=== PATIENT | male | born 1960 | race Caucasian/White ===

== ENCOUNTER 2020-09-14 13:46 | Inpatient (IN) ==
[2020-09-14] MEDS ORDERED: ACETAMINOPHEN 1,000 MG/100 ML VIAL IV STA (14:12)
[2020-09-14] MEDS ORDERED: FAMOTIDINE 20MG IV PUSH 20 MG/5 ML SYR IV STA (14:12)
[2020-09-14] MEDS ORDERED: METOCLOPRAMIDE HCL INJ 5 MG/ML 2 ML VIAL IV STA (14:12)
[2020-09-14] MEDS ORDERED: SODIUM CHLORIDE 0.9% 1000ML 1,000 ML IV ONE (14:12)
[2020-09-14 14:48] LABS: Basophils # (auto) 0.01 K/uL (0-0.2); Basophils % (auto) 0.1 %; Eosinophils # (auto) 0.03 K/uL (0-0.5); Eosinophils % (auto) 0.3 %; Hematocrit (blood only) 39.8 % (42-52); Hemoglobin 13.1 g/dL (14.0-18.0); Immature Granulocytes # (auto) 0.05 K/uL (0.00-0.02); Immature Granulocytes % (auto) 0.4 %; Lymphocytes # (auto) 0.93 K/uL (1.2-3.4); Lymphocytes % (auto) 7.8 %; Mean Corpuscular Hemoglobin 30.5 pg (25-34); Mean Corpuscular Hgb Conc 32.9 g/dL (32-36); Mean Corpuscular Volume 92.8 fL (80-100); Mean Platelet Volume 10.1 fL (7.4-10.4); Monocytes # (auto) 1.09 K/uL (0.11-0.59); Monocytes % (auto) 9.1 %; Neutrophils # (auto) 9.82 K/uL (1.4-6.5); Neutrophils % (auto) 82.3 %; Platelet Count 193 K/uL (130-400); RDW Coefficient of Variation 13.7 % (11.5-14.5); RDW Standard Deviation 46.5 fL (36.4-46.3); Red Blood Count 4.29 M/uL (4.7-6.1); White Blood Count 11.93 K/uL (4.8-10.8)
[2020-09-14 15:06] LABS: Appearance Urine Cloudy (Clear); Bacteria Urine Automated 2+ (Negative); Bilirubin Urine Negative (Negative); Blood Urine Negative (Negative); Cast Urine Automated 0 /lpf (0-5); Color Urine Orange; Glucose Urine UA Negative (Negative); Ketones Urine Trace (Negative); Leukocyte Esterase Urine 2+ (Negative); Nitrite Urine Negative (Negative); Protein Urine 1+ (Negative); Specific Gravity Urine 1.022 (1.000-1.030); Urobilinogen Urine Positive (Negative); WBC Urine Automated >30 /hpf (0-5); pH Urine 6.5 (4.5-7.5)
[2020-09-14 15:08] LABS: BUN Creatinine Ratio 13.8 (10-20); Calcium 8.9 mg/dl (8.5-10.1); Creatinine Clr Calc Pharmacy 141.8 ml/min; Est GFR (African American) 91.7; Est GFR (Non-African American) 79.1; Magnesium 2.2 mg/dl (1.8-2.4); Potassium 4.5 mmol/L (3.5-5.1)
[2020-09-14 15:12] LABS: Albumin Globulin Ratio 0.6 (0.9-2); Bilirubin Direct 0.4 mg/dl (0-0.2); Bilirubin,Total 1.2 mg/dl (0.2-1); Globulin 4.6 gm/dl (2.5-4.0); Phosphorus 2.3 mg/dl (2.5-4.9); Total Protein 7.6 gm/dl (6.4-8.2)
[2020-09-14 15:36] LABS: RBC Urine Automated 0-4 /hpf (0-4)
[2020-09-14] MEDS ORDERED: OPTIRAY 320 125ml IV ONE (17:38)
--- NOTE | 2020-09-14 18:00 | CT Scan Report ---
ABDOMEN AND PELVIS CT WITH IV CONTRAST CT DOSE: 2076.87 mGy.cm HISTORY: Acute left-sided flank pain left flank pain TECHNIQUE: Multiaxial CT images of the abdomen and pelvis were performed following the IV administrat ion of 118 cc of Optiray 320, A dose lowering technique was utilized adhering to the principles of A SHANNON. COMPARISON STUDY: Pelvis radiograph 10/04/2007 FINDINGS: Limited exam secondary to patient body habitus with portions of the anatomy outside the fie ld-of-view resulting in beam hardening artifact. Mild cardiomegaly. Coronary artery calcifications. Trace right pleural effusion with mild bibasilar o pacities suggestive of atelectasis. No pneumatosis or pneumoperitoneum. Hepatosplenomegaly with hepat ic steatosis. The spleen measures up to 20 cm in length. Mildly distended gallbladder with layering s ludge versus cholelithiasis. No CT evidence of acute cholecystitis. There is no biliary ductal dilati on. Mild to moderate pancreatic atrophy. Adrenal glands are within normal limits. Probable cyst of the inferior pole right kidney, 6.6 x 5.7 cm. No urolith or obstructive uropathy. Ca lcifications of the central prostate. Mild bladder wall thickening with perivesicular stranding. Smal l diverticulum of the urinary bladder dome, 2.9 cm. Atherosclerosis of the aorta without aneurysm. No adenopathy. No bowel obstruction or bowel wall thickening. Trace presacral free fluid. Trace free fluid of the in ferior left pericolic gutter. Noninflamed appendix. Small fat filled periumbilical hernia, diastases 2.2 cm. There is severe osteoarthritis with prominent subcortical cystic changes of the right femoral acetabular joints. Near-complete bony fusion of the left femoral acetabular joints with cannulated s crew. Asymmetric atrophy of the left hip and thigh. IMPRESSION: 1. No renal or ureteral calculi or obstructive uropathy. 2. Urinary bladder wall thickening with perivesicular stranding. Correlate with urinalysis to exclude cystitis. 3. Hepatosplenomegaly with hepatic steatosis. 4. No bowel obstruction or bowel wall thickening. Normal appendix. 5. Trace right pleural effusion with mild consolidation suggestive of atelectasis. 6. Additional findings as above. ACT 112: Negative or not required by law. The above report was generated using voice recognition software. It may contain grammatical, syntax o r spelling errors. Electronically signed by: Prosper Denis M.D. 09/14/2020 5:58 PM
[2020-09-14] MEDS ORDERED: cefTRIAXone SODIUM 2,000 MG/70 ML BAG IV STA (18:03)
[2020-09-14] MEDS ORDERED: SODIUM CHLORIDE 0.9% 500 ML IV ONE (18:41)
--- NOTE | 2020-09-14 19:53 | Emergency Department Note ---
Impression & Plan Urinary tract infection, Dehydration, Lumbar paraspinal muscle spasm, Hypophosphatemia, Hyponatremia ED Provider Note NAME: SAVANA LAMA AGE: 60 SEX: M ARRIVES VIA: Ambulance INFORMANT: Patient, ED PROVIDER(S): Loco Berger MD CHIEF COMPLAINT: Back pain. Urinary frequency. PLAN: Disposition: Admit MEDICAL DECISION MAKING: The patient is a pleasant 60-year-old gentleman with a past medical history of chronic pain on methadone and as needed oxycodone, nortriptyline, meloxicam, history of morbid obesity, hypertension who presents to the emergency department from home after having worsening lumbar spasms with feverishness and urinary frequency . The patient is poorly ambulatory at baseline where he requires both canes but reports recently he has had to borrow his 's walker but for the most part is sitting in his recliner. He denies any loss of bowel control or urinary retention. On arrival the patient is fatigued, uncomfortable appearing but no acute distress, temperature of 37.6 and vital signs otherwise stable. On exam the patient has mild left lumbar paraspinal muscle discomfort without discrete tenderness. He exhibits generalized weakness throughout without focal deficits. Reflex within normal limits. There is no clonus. Distal PMS intact. WBC 11.9, nonspecific. H/H 13.1/39.8 without prior values for comparison. Platelets within normal limits. Chemistry without metabolic acidosis. Sodium 130 consistent with the patient's clinically dry appearance. Phosphorus 2.3 with repletion provided. Total bili 1.2 with direct bilirubin 1.4, nonspecific. Electrolytes LFTs otherwise unremarkable. UA is consistent with infection with WBCs, 2+ LE, and 2+ bacteria with only 5-10 epithelial cells. COVID-19 RNA, NAAT test was negative. CT done pelvis was performed and demonstrates findings consistent with cystitis. There is no overt evidence of upper infection however given the patient's low-grade fever and back pain we will treat for possible early pyelonephritis. He was given initial dose of ceftriaxone and plan was to treat with course of cefdinir. The patient did appear improved he did still report feeling "achy". However given his evaluation did not show any emergent findings reasonable to proceed with trial of outpatient follow-up. Unfortunately the patient continued to express reservations about his ability to function at home as he reports he was only sitting in his recliner for the past 4 days. His also feels as though he cannot function well at home. We did attempt an ambulatory trial and this was unsuccessful. Thus, reasonable to admit the patient for further treatment of UTI/early as well as PT/OT and likely placement. Case was discussed with Dr. Mullen, [facility] hospitalist, who will evaluate the patient for admission. Triage Nursing notes reviewed and agree them. Prior medical records reviewed Vital Signs: reviewed and remarkable for no significant abnormalities Differential diagnosis: Infection, dehydration, metabolic abnormality, hypo/hyperglycemia, electrolyte disturbance, anemia, hypoxia, cardiac sources, intracerebral event, toxicologic, neurologic, as well as other pathologies. ER treatment provided: See below. Diagnostics interpreted by me: Cardiac Monitoring: An order for continuous cardiac monitoring was placed and demonstrated NSR, 85 bpm, no ectopy. Laboratory studies: See below Imaging studies: ABDOMEN AND PELVIS CT WITH IV CONTRAST CT DOSE: 2076.87 mGy.cm HISTORY: Acute left-sided flank pain left flank pain TECHNIQUE: Multiaxial CT images of the abdomen and pelvis were performed following the IV administration of 118 cc of Optiray 320, A dose lowering technique was utilized adhering to the principles of ALARA. COMPARISON STUDY: Pelvis radiograph 10/04/2007 FINDINGS: Limited exam secondary to patient body habitus with portions of the anatomy outside the [id number] resulting in beam hardening artifact. Mild cardiomegaly. Coronary artery calcifications. Trace right pleural effusion with mild bibasilar opacities suggestive of atelectasis. No pneumatosis or pneumoperitoneum. Hepatosplenomegaly with hepatic steatosis. The spleen measures up to 20 cm in length. Mildly distended gallbladder with layering sludge versus cholelithiasis. No CT evidence of acute cholecystitis. There is no biliary ductal dilation. Mild to moderate pancreatic atrophy. Adrenal glands are within normal limits. Probable cyst of the inferior pole right kidney, 6.6 x 5.7 cm. No urolith or obstructive uropathy. Calcifications of the central prostate. Mild bladder wall thickening with perivesicular stranding. Small diverticulum of the urinary bladder dome, 2.9 cm. Atherosclerosis of the aorta without aneurysm. No adenopathy. No bowel obstruction or bowel wall thickening. Trace presacral free fluid. Trace free fluid of the inferior left pericolic gutter. Noninflamed appendix. Small fat filled periumbilical hernia, diastases 2.2 cm. There is severe osteoarthritis with prominent subcortical cystic changes of the right femoral acetabular joints. Near-complete bony fusion of the left femoral acetabular joints with cannulated screw. Asymmetric atrophy of the left hip and thigh. IMPRESSION: 1. No renal or ureteral calculi or obstructive uropathy. 2. Urinary bladder wall thickening with perivesicular stranding. Correlate with urinalysis to exclude cystitis. 3. Hepatosplenomegaly with hepatic steatosis. 4. No bowel obstruction or bowel wall thickening. Normal appendix. 5. Trace right pleural effusion with mild consolidation suggestive of atelectasis. 6. Additional findings as above. ACT 112: Negative or not required by law. The above report was generated using voice recognition software. It may contain grammatical, syntax or spelling errors. Electronically signed by: Prosper Denis M.D. 09/14/2020 5:58 PM Dictated: 09/14/201750Transcribed: 09/14/201750 Consultation(s): Case was discussed with Dr. Mullen, [facility] hospitalist, who will evaluate the patient for admission. HPI: The patient is a pleasant 60-year-old gentleman with a past medical history of chronic pain on methadone and as needed oxycodone, nortriptyline, meloxicam, history of morbid obesity, hypertension who presents to the emergency department from home after having worsening lumbar spasms with feverishness and urinary frequency . The patient is poorly ambulatory at baseline where he requires both canes but reports recently he has had to borrow his 's walker but for the most part is sitting in his recliner. He denies any loss of bowel control or urinary retention. ROS: See above HPI for pertinent positives & negatives. A total of 10 systems reviewed and were otherwise negative. PAST MEDICAL HISTORY:See Below PAST SURGICAL HISTORY:See Below FAMILY HISTORY:See Below SOCIAL HISTORY:See Below HOME MEDICATIONS:See Below ALLERGIES:See Below VITALS:See Below PHYSICAL EXAMINATION: GENERAL: Awake, alert, uncomfortable-appearing, in no distress, BMI 47.8. HENT: Normocephalic, atraumatic. Oropharynx with dry mucous membranes and otherwise unremarkable. EYES: Normal conjunctiva. Sclera non-icteric. NECK: Supple. No nuchal rigidity. FROM. No JVD. RESPIRATORY: Clear to auscultation. CARDIAC: Regular rate, normal rhythm. Extremities warm and well perfused. Pulses equal. ABDOMEN: Soft, non-distended. No tenderness to palpation. No rebound or guarding. No masses. RECTAL: Deferred. MUSCULOSKELETAL: Chest examination reveals no tenderness. The back is symmetrical on inspection without obvious abnormality. Mild left lumbar paraspinal muscle tenderness. There is no CVA tenderness to palpation. No joint edema. LOWER EXTREMITIES: Calves are equal size bilaterally and non-tender. Chronic lymphedema. No discoloration. NEURO: Normal sensorium. No sensory or motor deficits noted. Generalized weakness with 4+/5 strength and SILT x 4 EXT. DTRs wnl. No clonus. SKIN: No rash or jaundice noted. Loco Berger MD Past Med/Surg History Medical History Anxiety Arthritis Chronic pain Hypertension Social History Smoking Status: Former smoker Preferred Language: British Feels Safe at Home: Yes Allergies Allergies Allergy/AdvReac Type Severity Reaction Status Date / Time adhesive AdvReac Intermediate IRRITATION Unverified 05/02/15 13:05 IN CERTAIN AREA Home Meds Home Medications Medication Instructions Recorded Confirmed atenolol 50 mg PO DAILY 09/14/20 09/14/20 baclofen 10 mg PO TID PRN 09/14/20 09/14/20 gabapentin 800 mg PO TID 09/14/20 09/14/20 lisinopril 10 mg PO DAILY 09/14/20 09/14/20 meloxicam 15 mg PO DAILY 09/14/20 09/14/20 methadone 15 mg PO Q8H PRN 09/14/20 09/14/20 nortriptyline 20 mg PO HS 09/14/20 09/14/20 oxycodone 20 mg PO DAILY PRN 09/14/20 09/14/20 venlafaxine 37.5 mg PO PM 09/14/20 09/14/20 Previous Rx's Medication Instructions Recorded Saccharomyces boulardii [Florastor] 250 mg PO BID #20 cap 09/14/20 cefdinir 300 mg PO BID 10 Days #20 cap 09/14/20 prochlorperazine maleate 10 mg PO QID PRN #14 tab 09/14/20 sod phos di, mono-K phos mono 1 tab PO BID #6 tab 09/14/20 [Phospha] Results & Data (ED) Vital Signs Vital Signs - 24 hr 09/14/20 13:53 09/14/20 13:55 09/14/20 13:56 Temperature 37.6 C H Temperature Source Oral Pulse Rate 95 H 93 H 94 H Pulse Rate from SpO2 Sensor 96 H 93 H Respiratory Rate 15 18 19 Respiratory Effort / Characteristics Non-Labored Spontaneous Respiratory Depth Normal Blood Pressure 124/83 124/83 Blood Pressure Mean 96 96 Blood Pressure Position Sitting Pulse Oximetry 97 97 99 Oxygen Delivery Method Room Air Sepsis Recent Fever Within 48 Hours Yes Sepsis New/Unexplained Change in Mental Status No Sepsis Action Taken by Nursing No Action Required 09/14/20 14:00 09/14/20 14:30 09/14/20 14:41 Temperature Temperature Source Pulse Rate 97 H 91 H Pulse Rate from SpO2 Sensor 100 H 91 H Respiratory Rate 21 19 Respiratory Effort / Characteristics Respiratory Depth Blood Pressure Blood Pressure Mean Blood Pressure Position Pulse Oximetry 93 96 Oxygen Delivery Method Room Air Sepsis Recent Fever Within 48 Hours Sepsis New/Unexplained Change in Mental Status Sepsis Action Taken by Nursing 09/14/20 15:00 09/14/20 15:04 09/14/20 15:30 Temperature Temperature Source Pulse Rate 89 88 84 Pulse Rate from SpO2 Sensor 89 88 86 Respiratory Rate 17 17 15 Respiratory Effort / Characteristics Respiratory Depth Blood Pressure 127/58 L 126/56 L Blood Pressure Mean 81 79 Blood Pressure Position Pulse Oximetry 94 96 92 Oxygen Delivery Method Sepsis Recent Fever Within 48 Hours Sepsis New/Unexplained Change in Mental Status Sepsis Action Taken by Nursing 09/14/20 15:31 09/14/20 16:00 09/14/20 16:01 Temperature Temperature Source Pulse Rate 85 81 79 Pulse Rate from SpO2 Sensor 84 Respiratory Rate 16 16 16 Respiratory Effort / Characteristics Respiratory Depth Blood Pressure 135/67 Blood Pressure Mean 89 Blood Pressure Position Pulse Oximetry 92 Oxygen Delivery Method Sepsis Recent Fever Within 48 Hours Sepsis New/Unexplained Change in Mental Status Sepsis Action Taken by Nursing 09/14/20 16:30 09/14/20 17:00 09/14/20 17:01 Temperature Temperature Source Pulse Rate 84 75 73 Pulse Rate from SpO2 Sensor Respiratory Rate 15 13 13 Respiratory Effort / Characteristics Respiratory Depth Blood Pressure 110/68 125/60 Blood Pressure Mean 82 81 Blood Pressure Position Pulse Oximetry Oxygen Delivery Method Sepsis Recent Fever Within 48 Hours Sepsis New/Unexplained Change in Mental Status Sepsis Action Taken by Nursing 09/14/20 17:30 09/14/20 17:31 09/14/20 18:39 Temperature Temperature Source Pulse Rate 74 73 85 Pulse Rate from SpO2 Sensor 83 Respiratory Rate 18 14 17 Respiratory Effort / Characteristics Respiratory Depth Blood Pressure 111/80 Blood Pressure Mean 90 Blood Pressure Position Pulse Oximetry 98 Oxygen Delivery Method Sepsis Recent Fever Within 48 Hours Sepsis New/Unexplained Change in Mental Status Sepsis Action Taken by Nursing 09/14/20 18:40 09/14/20 19:00 09/14/20 19:30 Temperature Temperature Source Pulse Rate 82 85 82 Pulse Rate from SpO2 Sensor 81 Respiratory Rate 17 22 13 Respiratory Effort / Characteristics Respiratory Depth Blood Pressure 131/59 L 128/99 131/62 Blood Pressure Mean 83 108 85 Blood Pressure Position Pulse Oximetry 97 98 97 Oxygen Delivery Method Room Air Room Air Sepsis Recent Fever Within 48 Hours Sepsis New/Unexplained Change in Mental Status Sepsis Action Taken by Nursing 09/14/20 20:45 09/14/20 21:01 Temperature Temperature Source Pulse Rate 86 86 Pulse Rate from SpO2 Sensor 87 85 Respiratory Rate 14 17 Respiratory Effort / Characteristics Respiratory Depth Blood Pressure 114/66 122/68 Blood Pressure Mean 82 86 Blood Pressure Position Pulse Oximetry 98 96 Oxygen Delivery Method Room Air Room Air Sepsis Recent Fever Within 48 Hours Sepsis New/Unexplained Change in Mental Status Sepsis Action Taken by Nursing Laboratory Data Attestation: I reviewed the patient's lab results. Result diagrams: 09/14/20 14:30 09/14/20 14:30 Lab Results 09/14/20 09/14/20 09/14/20 Range/Units 14:30 14:30 14:55 WBC 11.93 H (4.8-10.8) K/uL RBC 4.29 L (4.7-6.1) M/uL Hgb 13.1 L (14.0-18.0) g/dL Hct 39.8 L (42-52) % MCV 92.8 (80-100) fL MCH 30.5 (25-34) pg MCHC 32.9 (32-36) g/dL RDW Std Deviation 46.5 H (36.4-46.3) fL RDW Coeff of Kobi 13.7 (11.5-14.5) % Plt Count 193 (130-400) K/uL MPV 10.1 (7.4-10.4) fL Immature Gran % (Auto) 0.4 % Neut % (Auto) 82.3 % Lymph % (Auto) 7.8 % [place] % (Auto) 9.1 % Eos % (Auto) 0.3 % Baso % (Auto) 0.1 % Neut # (Auto) 9.82 H (1.4-6.5) K/uL Lymph # (Auto) 0.93 L (1.2-3.4) K/uL [place] # (Auto) 1.09 H (0.11-0.59) K/uL Eos # (Auto) 0.03 (0-0.5) K/uL Baso # (Auto) 0.01 (0-0.2) K/uL Immature Gran # (Auto) 0.05 H (0.00-0.02) K/uL Sodium 130 L (136-145) mmol/L Potassium 4.5 (3.5-5.1) mmol/L Chloride 95 L (98-107) mmol/L Carbon Dioxide 28 (21-32) mmol/L Anion Gap 7.0 (3-11) BUN 14 (7-18) mg/dl Creatinine 1.03 (0.6-1.4) mg/dl Est Cr Clr Drug Dosing 141.8 ml/min Est GFR ( Amer) 91.7 Est GFR (Non-Af Amer) 79.1 BUN/Creatinine Ratio 13.8 (10-20) Glucose 203 H (70-99) mg/dl Calcium 8.9 (8.5-10.1) mg/dl Phosphorus 2.3 L (2.5-4.9) mg/dl Magnesium 2.2 (1.8-2.4) mg/dl Total Bilirubin 1.2 H (0.2-1) mg/dl Direct Bilirubin 0.4 H (0-0.2) mg/dl AST 29 (15-37) U/L ALT 31 (12-78) U/L Alkaline Phosphatase 104 (45-117) U/L Total Protein 7.6 (6.4-8.2) gm/dl Albumin 3.0 L (3.4-5.0) gm/dl Globulin 4.6 H (2.5-4.0) gm/dl Albumin/Globulin Ratio 0.6 L (0.9-2) Lipase 98 (73-393) U/L Urine Color [place] Urine Appearance Cloudy A (Clear) Urine pH 6.5 (4.5-7.5) Ur Specific [place] 1.022 (1.000-1.030) Urine Protein 1+ H (Negative) Urine Glucose (UA) Negative (Negative) Urine Ketones Trace H (Negative) Urine Blood Negative (Negative) Urine Nitrite Negative (Negative) Urine Bilirubin Negative (Negative) Urine Urobilinogen Positive H (Negative) Ur Leukocyte Esterase 2+ H (Negative) Urine WBC (Auto) >30 H (0-5) /hpf Urine RBC (Auto) 0-4 (0-4) /hpf U Hyaline Cast (Auto) 0 (0-5) /lpf U Epithel Cells (Auto) 5-10 H (0-5) /lpf Urine Bacteria (Auto) 2+ H (Negative) COVID-19 Eval Order SARS-CoV-2, RNA, NAAT (NEGATIVE) 09/14/20 09/14/20 Range/Units 15:00 15:00 WBC (4.8-10.8) K/uL RBC (4.7-6.1) M/uL Hgb (14.0-18.0) g/dL Hct (42-52) % MCV (80-100) fL MCH (25-34) pg MCHC (32-36) g/dL RDW Std Deviation (36.4-46.3) fL RDW Coeff of Kobi (11.5-14.5) % Plt Count (130-400) K/uL MPV (7.4-10.4) fL Immature Gran % (Auto) % Neut % (Auto) % Lymph % (Auto) % [place] % (Auto) % Eos % (Auto) % Baso % (Auto) % Neut # (Auto) (1.4-6.5) K/uL Lymph # (Auto) (1.2-3.4) K/uL [place] # (Auto) (0.11-0.59) K/uL Eos # (Auto) (0-0.5) K/uL Baso # (Auto) (0-0.2) K/uL Immature Gran # (Auto) (0.00-0.02) K/uL Sodium (136-145) mmol/L Potassium (3.5-5.1) mmol/L Chloride (98-107) mmol/L Carbon Dioxide (21-32) mmol/L Anion Gap (3-11) BUN (7-18) mg/dl Creatinine (0.6-1.4) mg/dl Est Cr Clr Drug Dosing ml/min Est GFR ( Amer) Est GFR (Non-Af Amer) BUN/Creatinine Ratio (10-20) Glucose (70-99) mg/dl Calcium (8.5-10.1) mg/dl Phosphorus (2.5-4.9) mg/dl Magnesium (1.8-2.4) mg/dl Total Bilirubin (0.2-1) mg/dl Direct Bilirubin (0-0.2) mg/dl AST (15-37) U/L ALT (12-78) U/L Alkaline Phosphatase (45-117) U/L Total Protein (6.4-8.2) gm/dl Albumin (3.4-5.0) gm/dl Globulin (2.5-4.0) gm/dl Albumin/Globulin Ratio (0.9-2) Lipase (73-393) U/L Urine Color Urine Appearance (Clear) Urine pH (4.5-7.5) Ur Specific [place] (1.000-1.030) Urine Protein (Negative) Urine Glucose (UA) (Negative) Urine Ketones (Negative) Urine Blood (Negative) Urine Nitrite (Negative) Urine Bilirubin (Negative) Urine Urobilinogen (Negative) Ur Leukocyte Esterase (Negative) Urine WBC (Auto) (0-5) /hpf Urine RBC (Auto) (0-4) /hpf U Hyaline Cast (Auto) (0-5) /lpf U Epithel Cells (Auto) (0-5) /lpf Urine Bacteria (Auto) (Negative) COVID-19 Eval Order Covid19 IDNow atMTXC SARS-CoV-2, RNA, NAAT NEGATIVE (NEGATIVE) Administered Medications Sodium Chloride (Nss 1000ml) 1,000 mls @ 125 mls/hr IV .Q8H NORM Stop: 10/14/20 19:59 Last Admin: 09/14/20 20:42 Dose: 125 mls/hr Documented by: [id number] Discontinued Medications Hydromorphone HCl (Hydromorphone Inj 0.5 Mg/0.5 Ml Syr) 0.5 mg IV NOW STA Stop: 09/14/20 21:13 Last Admin: 09/14/20 21:47 Dose: 0.5 mg Documented by: [id number] Sodium Chloride (Nss 1000ml) 1,000 mls @ 999 mls/hr IV .Q1H1M ONE Stop: 09/14/20 15:12 Last Infusion: 09/14/20 16:00 Dose: 0 mls/hr Documented by: [id number] Admin: 09/14/20 14:59 Dose: 999 mls/hr Documented by: [id number] Acetaminophen (Ofirmev) 1,000 mg in 100 mls @ 400 mls/hr IV NOW STA Stop: 09/14/20 14:26 Last Infusion: 09/14/20 15:15 Dose: 0 mls/hr Documented by: [id number] Admin: 09/14/20 14:59 Dose: 400 mls/hr Documented by: [id number] Famotidine (Pepcid 20mg Iv Push) 20 mg in 5 mls @ 2.5 mls/min IV NOW STA Stop: 09/14/20 14:13 Last Admin: 09/14/20 14:59 Dose: 2.5 mls/min Documented by: [id number] Ceftriaxone Sodium (Rocephin) 2,000 mg in 70 mls @ 140 mls/hr IV NOW STA Stop: 09/14/20 18:32 Last Infusion: 09/14/20 19:12 Dose: 0 mls/hr Documented by: [id number] Admin: 09/14/20 18:37 Dose: 140 mls/hr Documented by: [id number] Sodium Chloride (Nss) 500 mls @ 999 mls/hr IV .Q31M ONE Stop: 09/14/20 19:11 Last Infusion: 09/14/20 19:16 Dose: 0 mls/hr Documented by: [id number] Admin: 09/14/20 18:42 Dose: 999 mls/hr Documented by: [id number] Ioversol (Optiray 320 125ml) 118 ml IV ONCE ONE Stop: 09/14/20 17:39 Last Admin: 09/14/20 17:38 Dose: 118 ml Documented by: [id number] Metoclopramide HCl (Metoclopramide Hcl Inj 5 Mg/Ml 2 Ml Vial) 10 mg IV NOW STA Stop: 09/14/20 14:13 Last Admin: 09/14/20 14:59 Dose: 10 mg Documented by: [id number] Discharge Plan Visit Data Chief Complaint: Back Injury/Pain Stated Complaint: Back Pain, Urinary Symptoms ED Provider: Loco Berger Discharge Problem: Urinary tract infection, Dehydration, Lumbar paraspinal muscle spasm, Hypophosphatemia, Hyponatremia Patient Disposition: Admitted As Inpatient Condition: Good Discharge Instructions Interventions: ED Discharge Assessment Last Done: 09/14/20 21:44 Discharge Problem: Urinary tract infection Qualifiers: Urinary tract infection type: acute cystitis Hematuria presence: with hematuria Qualified Code(s): N30.01 - Acute cystitis with hematuria
[2020-09-14] MEDS ORDERED: SODIUM CHLORIDE 0.9% 1000ML 1,000 ML IV SCH (20:00)
[2020-09-14] MEDS ORDERED: HYDROmorphone INJ 0.5 MG/0.5 ML SYR IV STA (21:12)
[2020-09-14] MEDS ORDERED: BACLOFEN 10 MG TAB PO PRN (22:10)
[2020-09-14] MEDS ORDERED: HYDROmorphone INJ 0.5 MG/0.5 ML SYR IV PRN (22:10)
[2020-09-14] MEDS ORDERED: ONDANSETRON INJ 2 MG/ML 2 ML VIAL IV PRN (22:10)
[2020-09-14] MEDS ORDERED: METHADONE HCL 5 MG TAB PO PRN (22:10)
[2020-09-14] MEDS: oxyCODONE HCL IR 5 MG TAB (IMMEDIATE RELEASE) PO PRN (23:31)
[2020-09-14] MEDS: METHADONE HCL 5 MG TAB PO SCH (23:31)
[2020-09-14] MEDS: GABAPENTIN 800 MG TAB PO SCH (23:32)
[2020-09-14] MEDS: NORTRIPTYLINE HCL 10 MG CAP PO SCH (23:32)
[2020-09-14] MEDS: VENLAFAXINE HCL XR 37.5 MG CAPXR PO SCH (23:33)
--- NOTE | 2020-09-15 01:32 | History and Physical Report ---
DATE OF ADMISSION: 09/14/2020 CHIEF COMPLAINT: Back pain, ambulatory dysfunction. HISTORY OF PRESENT ILLNESS: A 60-year-old male with past medical history significant for hypertension, morbid obesity, generalized osteoarthrosis, chronic pain syndrome, who presents with back pain and ambulatory dysfunction. The patient states since last 3 days he is having severe back pain and spasms. He usually walks with two canes, but he is using 's walker, which prompted him to come to the ER. He also had some burning micturition and some abdominal discomfort. In the ER, he had a mild temperature spike and mild leukocytosis and UA was positive. Initially ER tried to discharge him, but he was having poor ambulatory dysfunction and so we are called for observation in the hospital and PT and OT. Currently complains of back pain. He had headache about a week ago, but that got resolved. He has chronic erythema on his face. No blurred visions, no earache, no runny nose, no sore throat, no loss of sense of smell or taste. No cough, no difficulty swallowing. Appetite is not that great since last few days. No chest pain, no shortness of breath. Has nausea. Has some abdominal discomfort. He is constipated. Denies any blood in the stool or black stools. Denies any hematuria. No rash anywhere else. ALLERGIES: ADHESIVES. PAST MEDICAL HISTORY: As mentioned above. PAST SURGICAL HISTORY: Left wrist reconstruction surgery, hemorrhoid removal, reconstruction of the hip, tonsillectomy, adenoidectomy, sigmoidoscopy. MEDICATIONS: The patient is on atenolol 50 mg p.o. daily, baclofen 10 mg p.o. t.i.d. p.r.n., gabapentin 800 mg p.o. t.i.d., lisinopril 10 mg p.o. daily, meloxicam 15 mg p.o. daily, methadone 15 mg p.o. 8 hours p.r.n., nortriptyline 20 mg p.o. at bedtime, oxycodone 20 mg p.o. daily p.r.n., prochlorperazine 10 mg p.o. q.i.d. p.r.n., Florastor 250 mg p.o. b.i.d., Phospha one tablet p.o. b.i.d., venlafaxine 37.5 mg p.o. p.m. FAMILY HISTORY: Significant for maternal grandfather had cancer; maternal grandmother had diabetes. SOCIAL HISTORY: , smokes 1 pack a day. Alcohol, social drinking. No drug use. REVIEW OF SYSTEMS: As per HPI. Rest of the review of systems negative. PHYSICAL EXAMINATION: GENERAL: The patient is morbidly obese, not in acute distress. VITAL SIGNS: Temperature 37.6, pulse 86, respiratory rate 14, blood pressure 114/66, oxygen 98% on room air. HEENT: Pupils equal, round, and reactive. Erythema on the face on both the cheeks and forehead. Oral mucosa moist. NECK: No neck masses seen. CARDIOVASCULAR: S1, S2 heard. Regular rate and rhythm, no murmur, no gallop. RESPIRATORY SYSTEM: Normal AP diameter. No accessory muscle use. No wheezing, no crackles. ABDOMEN: Soft, bowel sounds present, nontender. No distention. CENTRAL NERVOUS SYSTEM: Alert and oriented. Speech is clear. No facial droop. Obeys simple commands. Moves extremities. EXTREMITIES: No edema, no erythema. MUSCULOSKELETAL: Right straight leg test positive. LABORATORY DATA: WBC 11.9, hemoglobin 13.1, hematocrit 39.8, platelets 193. Sodium 130, potassium 4.5, chloride 95, bicarbonate 28, BUN 14, creatinine 1, serum glucose 203, calcium 8.9, phosphorus 2.3, magnesium 2.2, total bilirubin 1.2, direct bilirubin 0.4, AST 29, ALT 31, alkaline phosphatase 104, lipase 98. Urinalysis positive for leukocyte esterase and +2 bacteria. SARS-CoV-2 negative. IMAGING DATA: CT of the abdomen and pelvis, urinary bladder wall thickening with perivesical stranding, correlate with urinalysis to exclude cystitis. Hepatosplenomegaly with hepatic steatosis. No renal or ureteral calculi or obstructive uropathy. No bowel obstruction or bowel wall thickening, normal appendix. Trace right pleural effusion with mild consolidation suggestive of atelectasis. ASSESSMENT AND PLAN: This is a 60-year-old male who presents with dqxby-[id number] back pain and ambulatory dysfunction and urinary tract infection. 1. Nfcoy-tl-lzntixu back pain and ambulatory dysfunction, chronic pain syndrome, continue home pain medications, IV Dilaudid p.r.n. PT/OT. May be pain exacerbated from his urinary tract infection. 2. Urinary tract infection: Will continue Rocephin. Follow the cultures. 3. Hyperglycemia: We will follow HbA1c levels. Follow the labs. 4. Hypertension: Continue his lisinopril. Will monitor his blood pressure. 5. Depression: Continue venlafaxine. 6. Morbid obesity: Needs counseling. 7. Deep venous thrombosis prophylaxis: Lovenox. DISPOSITION: Observation in medical floor. PT and OT. Social service to help with discharge planning. Level 1 full code. MTDD
[2020-09-15] MEDS: METHADONE HCL 5 MG TAB PO SCH ×3 (06:28→21:13)
[2020-09-15 06:56] LABS: Basophils # (auto) 0.03 K/uL (0-0.2); Basophils % (auto) 0.3 %; Eosinophils # (auto) 0.17 K/uL (0-0.5); Eosinophils % (auto) 1.5 %; Hematocrit (blood only) 37.7 % (42-52); Hemoglobin 12.3 g/dL (14.0-18.0); Immature Granulocytes # (auto) 0.03 K/uL (0.00-0.02); Immature Granulocytes % (auto) 0.3 %; Lymphocytes # (auto) 1.46 K/uL (1.2-3.4); Lymphocytes % (auto) 13.2 %; Mean Corpuscular Hemoglobin 30.7 pg (25-34); Mean Corpuscular Hgb Conc 32.6 g/dL (32-36); Mean Platelet Volume 10.1 fL (7.4-10.4); Monocytes # (auto) 1.06 K/uL (0.11-0.59); Monocytes % (auto) 9.6 %; Neutrophils # (auto) 8.31 K/uL (1.4-6.5); Neutrophils % (auto) 75.1 %; Platelet Count 200 K/uL (130-400); RDW Coefficient of Variation 13.8 % (11.5-14.5); RDW Standard Deviation 47.7 fL (36.4-46.3); Red Blood Count 4.01 M/uL (4.7-6.1); White Blood Count 11.06 K/uL (4.8-10.8)
[2020-09-15] MEDS ORDERED: MICONAZOLE NITRATE POWDER 43 GM EXT PRN (07:02)
[2020-09-15 07:03] LABS: INR 1.2 (0.9-1.1)
[2020-09-15 07:23] LABS: BUN Creatinine Ratio 16.1 (10-20); Calcium 8.2 mg/dl (8.5-10.1); Creatinine Clr Calc Pharmacy 157.7 ml/min; Est GFR (African American) 106.5; Est GFR (Non-African American) 91.9; Magnesium 2.3 mg/dl (1.8-2.4); Potassium 4.3 mmol/L (3.5-5.1)
[2020-09-15 07:58] LABS: Estimated Average Glucose 169 mg/dl; Hemoglobin A1C 7.5 % (4.5-5.6)
[2020-09-15] MEDS: ENOXAPARIN INJ 40 MG/0.4 ML SYR SQ SCH ×2 (08:24→21:14)
[2020-09-15] MEDS: ATENOLOL 50 MG TABLET PO SCH (08:25)
[2020-09-15] MEDS: lisinopril 10 MG TAB PO SCH (08:25)
[2020-09-15] MEDS: MELOXICAM 7.5 MG TAB PO SCH (08:25)
[2020-09-15] MEDS: GABAPENTIN 800 MG TAB PO SCH ×3 (08:25→21:13)
[2020-09-15] MEDS: BACLOFEN 10 MG TAB PO SCH ×2 (14:05→21:12)
--- NOTE | 2020-09-15 14:44 | Communication Note ---
Date of Service: September 15, 2020 The patient was seen and examined in medical floor He is obese and admitted with back pain with ambulatory dysfunction and noted to have UTI Has had some sweating earlier this morning but denies any other symptoms except ongoing pain On examination Lying in bed comfortably Hemodynamically stable His admission labs and imaging studies reviewed He has been getting ceftriaxone for UTI His usual medications will be continued PT and OT evaluation Will have full progress note tomorrow DR Rossi Michaels
[2020-09-15] MEDS: cefTRIAXone SODIUM 2,000 MG in DEXTROSE 5% 50 ML IV SCH (17:37)
[2020-09-15] MEDS: VENLAFAXINE HCL XR 37.5 MG CAPXR PO SCH (21:12)
[2020-09-15] MEDS: NORTRIPTYLINE HCL 10 MG CAP PO SCH (21:13)
[2020-09-15] MEDS: INSULIN ASPART 100 UNITS/ML 3 ML PEN SC SCH (21:14)
[2020-09-16] MEDS: METHADONE HCL 5 MG TAB PO SCH ×3 (05:19→21:30)
[2020-09-16] MEDS: ATENOLOL 50 MG TABLET PO SCH (08:19)
[2020-09-16] MEDS: MELOXICAM 7.5 MG TAB PO SCH (08:19)
[2020-09-16] MEDS: BACLOFEN 10 MG TAB PO SCH ×3 (08:20→21:32)
[2020-09-16] MEDS: lisinopril 10 MG TAB PO SCH (08:20)
[2020-09-16] MEDS: ENOXAPARIN INJ 40 MG/0.4 ML SYR SQ SCH ×2 (08:20→21:32)
[2020-09-16] MEDS: GABAPENTIN 800 MG TAB PO SCH ×3 (08:20→21:31)
[2020-09-16] MEDS: INSULIN ASPART 100 UNITS/ML 3 ML PEN SC SCH ×4 (08:21→20:59)
--- NOTE | 2020-09-16 09:58 | Hospitalist Progress Note ---
Date of Service September 16, 2020 This is a late entry for 09/15/2020 Assessment & Plan (1) Acute exacerbation of chronic low back pain: Has chronic back pain on narcotics as an outpatient Has been complaining of increasing pain recently with ambulatory dysfunction We will continue outpatient pain medications May need occasional intravenous pain medicine We will get PT and OT evaluation (2) Lumbar paraspinal muscle spasm: We will continue with regular doses of baclofen (3) Urinary tract infection: Been having urinary symptoms Has been on ceftriaxone (4) Hypertension: Patient is controlled (5) Morbid obesity: (6) Depression: No acute delirium Continue current meds DVT prophylaxis Subcu Lovenox Admission and Anticipated Discharge Date Admission Date: September 14, 2020 Subjective Late entry for 09/15/2020 The patient was seen and examined in medical floor His back pain seems to be stable and complains to have occasional spasm He has had some sweating after admission or during my examination symptoms were better Review of Systems Review of Systems: All systems reviewed and are unremarkable except as noted below Musculoskeletal: + back pain Physical Exam Physical Exam: Lying in bed comfortably Constitutional: well developed, well nourished and + obese; not ill appearing Eyes: PERRL, conjunctivae normal, anicteric sclerae ENMT: external ear and nose normal, oropharynx normal Neck: trachea midline, no thyromegaly Respiratory: no respiratory distress Auscultation: lungs clear to auscultation bilaterally Cardiovascular: Rate/Rhythm: regular rate and regular rhythm Heart Sounds: no murmur Extremities: + edema (Trace to 1+ edema bilaterally) Gastrointestinal (Abdomen): Inspection/Auscultation: normal bowel sounds; abdomen not distended Percussion/Palpation: abdomen soft; abdomen nontender Musculoskeletal: No acute arthritis in any joint Neurologic: Alert, awake and oriented x3. No focal sensory and motor deficit appreciated Psychiatric: A+Ox3, euthymic affect Lymphatic: no cervical or axillary lymphadenopathy Results & Data Results & Data ([facility]) Vital Signs (Past 12 Hours) Vital Signs Temp Pulse Resp BP Pulse Ox 09/16/20 07:27 37.2 C 71 18 119/70 92 09/15/20 23:19 36.9 C 74 18 114/67 93 Medications Administered Current Inpatient Medications Acetaminophen (Acetaminophen 325 Mg Tab) 650 mg PO Q4H PRN PRN Reason: pain/fever Stop: 10/14/20 22:09 Atenolol (Atenolol 50 Mg Tablet) 50 mg PO DAILY [facility] Stop: 10/15/20 08:59 Last Admin: 09/16/20 08:19 Dose: 50 mg Documented by: Baclofen (Baclofen 10 Mg Tab) 10 mg PO TID [facility] Stop: 10/15/20 13:59 Last Admin: 09/16/20 08:20 Dose: 10 mg Documented by: Enoxaparin Sodium (Enoxaparin Inj 40 Mg/0.4 Ml Syr) 40 mg SQ Q12H [facility] Stop: 10/15/20 08:59 Last Admin: 09/16/20 08:20 Dose: 40 mg Documented by: Gabapentin (Gabapentin 800 Mg Tab) 800 mg PO TID [facility] Stop: 10/15/20 08:59 Last Admin: 09/16/20 08:20 Dose: 800 mg Documented by: Hydromorphone HCl (Hydromorphone Inj 0.5 Mg/0.5 Ml Syr) 0.5 mg IV Q4H PRN PRN Reason: Pain Stop: 09/28/20 22:09 Ceftriaxone Sodium 2,000 mg/ (Dextrose) 70 mls @ 100 mls/hr IV Q24H [facility]; Protocol Stop: 09/23/20 18:41 Last Infusion: 09/15/20 18:30 Dose: Infused Documented by: Insulin Aspart (Insulin Aspart 100 Units/Ml 3 Ml Pen) 0 units SC ACHS [facility] Stop: 10/15/20 20:59 Last Admin: 09/16/20 08:21 Dose: 4 units Documented by: Lisinopril (Lisinopril 10 Mg Tab) 10 mg PO DAILY [facility] Stop: 10/15/20 08:59 Last Admin: 09/16/20 08:20 Dose: 10 mg Documented by: Meloxicam (Meloxicam 7.5 Mg Tab) 15 mg PO DAILY [facility] Stop: 10/15/20 08:59 Last Admin: 09/16/20 08:19 Dose: 15 mg Documented by: Methadone HCl (Methadone Hcl 5 Mg Tab) 15 mg PO Q8 [facility] Stop: 09/29/20 21:59 Last Admin: 09/16/20 05:19 Dose: 15 mg Documented by: Miconazole Nitrate (Miconazole Nitrate Powder 43 Gm) 1 appln EXT PRN PRN PRN Reason: Rash Stop: 10/15/20 07:01 Nortriptyline HCl (Nortriptyline Hcl 10 Mg Cap) 20 mg PO HS [facility] Stop: 10/15/20 20:59 Last Admin: 09/15/20 21:13 Dose: 20 mg Documented by: Oxycodone HCl (Oxycodone Hcl Ir 5 Mg Tab (Immediate Release)) 20 mg PO DAILY PRN PRN Reason: Pain Stop: 09/28/20 22:09 Last Admin: 09/14/20 23:31 Dose: 20 mg Documented by: Polyethylene Glycol (Polyethylene (Miralax) 17 Gm Pack) 17 gm PO DAILY PRN PRN Reason: Constipation Stop: 10/14/20 22:09 Venlafaxine HCl (Venlafaxine Hcl Xr 37.5 Mg Capxr) 37.5 mg PO PM [facility] Stop: 10/15/20 20:59 Last Admin: 09/15/20 21:12 Dose: 37.5 mg Documented by: (1) Urinary tract infection Hematuria presence: with hematuria Urinary tract infection type: acute cystitis Qualified Code(s): N30.01 - Acute cystitis with hematuria
--- NOTE | 2020-09-16 11:42 | Hospitalist Progress Note ---
Date of Service September 16, 2020 Assessment & Plan (1) Acute exacerbation of chronic low back pain: Has chronic back pain on narcotics as an outpatient Has been complaining of increasing pain recently with ambulatory dysfunction We will continue outpatient pain medications May need occasional intravenous pain medicine We will get PT and OT evaluation We will get lidocaine patch locally (2) Lumbar paraspinal muscle spasm: We will continue with regular doses of baclofen Pain is worse with movement (3) Urinary tract infection: Been having urinary symptoms Has been on ceftriaxone Awaiting urine culture report (4) Hypertension: Patient is controlled (5) Morbid obesity: (6) Depression: No acute delirium Continue current meds DVT prophylaxis Subcu Lovenox Awaiting PT and OT evaluation May need placement Admission and Anticipated Discharge Date Admission Date: September 14, 2020 Subjective Late entry for 09/15/2020 The patient was seen and examined in medical floor His back pain seems to be stable and complains to have occasional spasm He has had some sweating after admission or during my examination symptoms were better 09/16/2020 The patient was seen and examined in medical floor He has had another episode of sweating this morning His pain seems to be reasonably controlled Does not have any radiation of pain Review of Systems Review of Systems: All systems reviewed and are unremarkable except as noted below Musculoskeletal: + back pain Physical Exam Physical Exam: Lying in bed comfortably Constitutional: well developed, well nourished and + obese; not ill appearing Eyes: PERRL, conjunctivae normal, anicteric sclerae ENMT: external ear and nose normal, oropharynx normal Neck: trachea midline, no thyromegaly Respiratory: no respiratory distress Auscultation: lungs clear to auscultation bilaterally Cardiovascular: Rate/Rhythm: regular rate and regular rhythm Heart Sounds: no murmur Extremities: + edema (Trace to 1+ edema bilaterally) Gastrointestinal (Abdomen): Inspection/Auscultation: normal bowel sounds; abdomen not distended Percussion/Palpation: abdomen soft; abdomen nontender Musculoskeletal: Has back pain without radiation and does not have any acute arthritis Neurologic: Alert, awake and oriented x3 Psychiatric: A+Ox3, euthymic affect Lymphatic: no cervical or axillary lymphadenopathy Results & Data Results & Data ([facility]) Vital Signs (Past 12 Hours) Vital Signs Temp Pulse Resp BP Pulse Ox 09/16/20 07:27 37.2 C 71 18 119/70 92 Medications Administered Current Inpatient Medications Acetaminophen (Acetaminophen 325 Mg Tab) 650 mg PO Q4H PRN PRN Reason: pain/fever Stop: 10/14/20 22:09 Atenolol (Atenolol 50 Mg Tablet) 50 mg PO DAILY [facility] Stop: 10/15/20 08:59 Last Admin: 09/16/20 08:19 Dose: 50 mg Documented by: Baclofen (Baclofen 10 Mg Tab) 10 mg PO TID [facility] Stop: 10/15/20 13:59 Last Admin: 09/16/20 08:20 Dose: 10 mg Documented by: Enoxaparin Sodium (Enoxaparin Inj 40 Mg/0.4 Ml Syr) 40 mg SQ Q12H [facility] Stop: 10/15/20 08:59 Last Admin: 09/16/20 08:20 Dose: 40 mg Documented by: Gabapentin (Gabapentin 800 Mg Tab) 800 mg PO TID [facility] Stop: 10/15/20 08:59 Last Admin: 09/16/20 08:20 Dose: 800 mg Documented by: Hydromorphone HCl (Hydromorphone Inj 0.5 Mg/0.5 Ml Syr) 0.5 mg IV Q4H PRN PRN Reason: Pain Stop: 09/28/20 22:09 Ceftriaxone Sodium 2,000 mg/ (Dextrose) 70 mls @ 100 mls/hr IV Q24H [facility]; Protocol Stop: 09/23/20 18:41 Last Infusion: 09/15/20 18:30 Dose: Infused Documented by: Insulin Aspart (Insulin Aspart 100 Units/Ml 3 Ml Pen) 0 units SC ACHS [facility] Stop: 10/15/20 20:59 Last Admin: 09/16/20 08:21 Dose: 4 units Documented by: Lidocaine (Lidocaine 5% 1 Patch) 1 patch TD QAM [facility] Stop: 10/16/20 11:44 Lisinopril (Lisinopril 10 Mg Tab) 10 mg PO DAILY [facility] Stop: 10/15/20 08:59 Last Admin: 09/16/20 08:20 Dose: 10 mg Documented by: Meloxicam (Meloxicam 7.5 Mg Tab) 15 mg PO DAILY [facility] Stop: 10/15/20 08:59 Last Admin: 09/16/20 08:19 Dose: 15 mg Documented by: Methadone HCl (Methadone Hcl 5 Mg Tab) 15 mg PO Q8 [facility] Stop: 09/29/20 21:59 Last Admin: 09/16/20 05:19 Dose: 15 mg Documented by: Miconazole Nitrate (Miconazole Nitrate Powder 43 Gm) 1 appln EXT PRN PRN PRN Reason: Rash Stop: 10/15/20 07:01 Miscellaneous (Remove Lidoderm Patch) 1 ea N/A DAILY@2100 [facility] Stop: 10/16/20 20:59 Nortriptyline HCl (Nortriptyline Hcl 10 Mg Cap) 20 mg PO HS [facility] Stop: 10/15/20 20:59 Last Admin: 09/15/20 21:13 Dose: 20 mg Documented by: Oxycodone HCl (Oxycodone Hcl Ir 5 Mg Tab (Immediate Release)) 20 mg PO DAILY PRN PRN Reason: Pain Stop: 09/28/20 22:09 Last Admin: 09/14/20 23:31 Dose: 20 mg Documented by: Polyethylene Glycol (Polyethylene (Miralax) 17 Gm Pack) 17 gm PO DAILY PRN PRN Reason: Constipation Stop: 10/14/20 22:09 Venlafaxine HCl (Venlafaxine Hcl Xr 37.5 Mg Capxr) 37.5 mg PO PM [facility] Stop: 10/15/20 20:59 Last Admin: 09/15/20 21:12 Dose: 37.5 mg Documented by: (1) Urinary tract infection Hematuria presence: with hematuria Urinary tract infection type: acute cystitis Qualified Code(s): N30.01 - Acute cystitis with hematuria
[2020-09-16] MEDS: LIDOCAINE 5% 1 PATCH TD SCH (12:13)
[2020-09-16] MEDS: oxyCODONE HCL IR 5 MG TAB (IMMEDIATE RELEASE) PO PRN (16:14)
[2020-09-16] MEDS: cefTRIAXone SODIUM 2,000 MG in DEXTROSE 5% 50 ML IV SCH (17:38)
[2020-09-16] MEDS: NORTRIPTYLINE HCL 10 MG CAP PO SCH (21:31)
[2020-09-16] MEDS: VENLAFAXINE HCL XR 37.5 MG CAPXR PO SCH (21:32)
[2020-09-17] MEDS: METHADONE HCL 5 MG TAB PO SCH ×3 (05:26→22:30)
[2020-09-17] MEDS: POLYETHYLENE (MIRALAX) 17 GM PACK PO PRN (09:04)
[2020-09-17] MEDS: BACLOFEN 10 MG TAB PO SCH ×3 (09:06→20:33)
[2020-09-17] MEDS: lisinopril 10 MG TAB PO SCH (09:06)
[2020-09-17] MEDS: ATENOLOL 50 MG TABLET PO SCH (09:06)
[2020-09-17] MEDS: LIDOCAINE 5% 1 PATCH TD SCH (09:06)
[2020-09-17] MEDS: GABAPENTIN 800 MG TAB PO SCH ×3 (09:07→20:33)
[2020-09-17] MEDS: ENOXAPARIN INJ 40 MG/0.4 ML SYR SQ SCH ×2 (09:07→20:34)
[2020-09-17] MEDS: MELOXICAM 7.5 MG TAB PO SCH (09:07)
[2020-09-17] MEDS: INSULIN ASPART 100 UNITS/ML 3 ML PEN SC SCH ×4 (09:08→22:14)
--- NOTE | 2020-09-17 14:03 | Hospitalist Progress Note ---
Date of Service September 17, 2020 Assessment & Plan (1) Acute exacerbation of chronic low back pain: Has chronic back pain on narcotics as an outpatient Has been complaining of increasing pain recently with ambulatory dysfunction We will continue outpatient pain medications May need occasional intravenous pain medicine We will get PT and OT evaluation We will get lidocaine patch locally Still ongoing back pain without any radiculopathy and/or bladder or bowel problem PT recommended rehab and the patient is awaiting insurance approval to go to [facility] or [facility] Will need Ortho evaluation prior to discharge We will get initial x-ray of the spine Ortho consulted (2) Lumbar paraspinal muscle spasm: We will continue with regular doses of baclofen Pain is worse with movement (3) Urinary tract infection: Been having urinary symptoms Has been on ceftriaxone Awaiting urine culture report Urine culture showed alpha streptococci not Enterococcus We will continue antibiotic for 5 days in total since he has been having some sweating intermittently (4) Hypertension: Patient is controlled (5) Morbid obesity: (6) Depression: No acute delirium Continue current meds DVT prophylaxis Subcu Lovenox Awaiting PT and OT evaluation May need placement Admission and Anticipated Discharge Date Admission Date: September 16, 2020 Subjective Late entry for 09/15/2020 The patient was seen and examined in medical floor His back pain seems to be stable and complains to have occasional spasm He has had some sweating after admission or during my examination symptoms were better 09/16/2020 The patient was seen and examined in medical floor He has had another episode of sweating this morning His pain seems to be reasonably controlled Does not have any radiation of pain 09/17/2020 The patient was seen and examined in medical floor He complains to have ongoing back pain without any radiation and without any bladder and/or bowel problem He has been on chronic pain medications for chronic pain syndrome PT recommended that he should go to rehab but he will need to have Ortho evaluation before going to rehab Review of Systems Review of Systems: All systems reviewed and are unremarkable except as noted below Musculoskeletal: + back pain Physical Exam Physical Exam: Lying in bed comfortably Constitutional: well developed, well nourished and + obese; not ill appearing Eyes: PERRL, conjunctivae normal, anicteric sclerae ENMT: external ear and nose normal, oropharynx normal Neck: trachea midline, no thyromegaly Respiratory: no respiratory distress Auscultation: lungs clear to auscultation bilaterally Cardiovascular: Rate/Rhythm: regular rate and regular rhythm Heart Sounds: no murmur Extremities: + edema (Trace to 1+ edema bilaterally) Gastrointestinal (Abdomen): Inspection/Auscultation: normal bowel sounds; abdomen not distended Percussion/Palpation: abdomen soft; abdomen nontender Musculoskeletal: Back pain with localized tenderness at the lower lumbar area. Neurologic: Alert, awake and oriented x3 Psychiatric: A+Ox3, euthymic affect Lymphatic: no cervical or axillary lymphadenopathy Results & Data Results & Data ([facility]) Vital Signs (Past 12 Hours) Vital Signs Temp Pulse Resp BP Pulse Ox 09/17/20 07:19 36.5 C 70 15 123/72 92 Medications Administered Current Inpatient Medications Acetaminophen (Acetaminophen 325 Mg Tab) 650 mg PO Q4H PRN PRN Reason: pain/fever Stop: 10/14/20 22:09 Atenolol (Atenolol 50 Mg Tablet) 50 mg PO DAILY [facility] Stop: 10/15/20 08:59 Last Admin: 09/17/20 09:06 Dose: 50 mg Documented by: Baclofen (Baclofen 10 Mg Tab) 10 mg PO TID [facility] Stop: 10/15/20 13:59 Last Admin: 09/17/20 09:06 Dose: 10 mg Documented by: Enoxaparin Sodium (Enoxaparin Inj 40 Mg/0.4 Ml Syr) 40 mg SQ Q12H [facility] Stop: 10/15/20 08:59 Last Admin: 09/17/20 09:07 Dose: 40 mg Documented by: Gabapentin (Gabapentin 800 Mg Tab) 800 mg PO TID [facility] Stop: 10/15/20 08:59 Last Admin: 09/17/20 09:07 Dose: 800 mg Documented by: Hydromorphone HCl (Hydromorphone Inj 0.5 Mg/0.5 Ml Syr) 0.5 mg IV Q4H PRN PRN Reason: Pain Stop: 09/28/20 22:09 Ceftriaxone Sodium 2,000 mg/ (Dextrose) 70 mls @ 100 mls/hr IV Q24H [facility]; Protocol Stop: 09/23/20 18:41 Last Infusion: 09/16/20 18:27 Dose: Infused Documented by: Insulin Aspart (Insulin Aspart 100 Units/Ml 3 Ml Pen) 0 units SC ACHS [facility] Stop: 10/15/20 20:59 Last Admin: 09/17/20 12:40 Dose: 6 units Documented by: Lidocaine (Lidocaine 5% 1 Patch) 1 patch TD QAM [facility] Stop: 10/16/20 11:59 Last Admin: 09/17/20 09:06 Dose: 1 patch Documented by: Lisinopril (Lisinopril 10 Mg Tab) 10 mg PO DAILY [facility] Stop: 10/15/20 08:59 Last Admin: 09/17/20 09:06 Dose: 10 mg Documented by: Meloxicam (Meloxicam 7.5 Mg Tab) 15 mg PO DAILY [facility] Stop: 10/15/20 08:59 Last Admin: 09/17/20 09:07 Dose: 15 mg Documented by: Methadone HCl (Methadone Hcl 5 Mg Tab) 15 mg PO Q8 [facility] Stop: 09/29/20 21:59 Last Admin: 09/17/20 05:26 Dose: 15 mg Documented by: Miconazole Nitrate (Miconazole Nitrate Powder 43 Gm) 1 appln EXT PRN PRN PRN Reason: Rash Stop: 10/15/20 07:01 Miscellaneous (Remove Lidoderm Patch) 1 ea N/A DAILY@2100 [facility] Stop: 10/16/20 20:59 Last Admin: 09/16/20 21:32 Dose: 1 ea Documented by: Nortriptyline HCl (Nortriptyline Hcl 10 Mg Cap) 20 mg PO HS [facility] Stop: 10/15/20 20:59 Last Admin: 09/16/20 21:31 Dose: 20 mg Documented by: Oxycodone HCl (Oxycodone Hcl Ir 5 Mg Tab (Immediate Release)) 20 mg PO DAILY P RN PRN Reason: Pain Stop: 09/28/20 22:09 Last Admin: 09/16/20 16:14 Dose: 20 mg Documented by: Polyethylene Glycol (Polyethylene (Miralax) 17 Gm Pack) 17 gm PO DAILY PRN PRN Reason: Constipation Stop: 10/14/20 22:09 Last Admin: 09/17/20 09:04 Dose: 17 gm Documented by: Venlafaxine HCl (Venlafaxine Hcl Xr 37.5 Mg Capxr) 37.5 mg PO PM [facility] Stop: 10/15/20 20:59 Last Admin: 09/16/20 21:32 Dose: 37.5 mg Documented by: (1) Urinary tract infection Hematuria presence: with hematuria Urinary tract infection type: acute cystitis Qualified Code(s): N30.01 - Acute cystitis with hematuria
--- NOTE | 2020-09-17 16:23 | CT Scan Report ---
LUMBAR SPINE CT CT DOSE: 1213.69 mGy.cm HISTORY: Low back pain TECHNIQUE: Multiaxial CT images of the lumbar spine were performed and reformatted in the sagittal an d coronal plane without the use of contrast. A dose lowering technique was utilized adhering to the principles of ALARA. COMPARISON: Abdomen and pelvis CT 09/14/2020. FINDINGS: No fracture or subluxation. Moderate to severe disc space narrowing throughout the lumbar s pine. The most mass at the L3-L4 and L5-S1 levels. There are large anterior osteophytes seen througho ut the lumbar spine. Moderate facet degenerative changes within the lower lumbar spine. The sacrum is intact. Questionable irregularity within the right iliac bone appears to be secondary to motion ignacio fact. Mild dextroscoliosis which may be positional. Paravertebral soft tissues are within normal limi ts. Moderate central canal narrowing at L2-L3, L3-L4, L4-L5 due to the broad-based posterior disc bul ges and ligamentum flavum/facet hypertrophy. There is also moderate bilateral neural foraminal narrow ing throughout the majority of the lumbar spine. IMPRESSION: 1. No fracture or subluxation within the lumbar spine. 2. Moderate to severe degenerative changes as described above. ACT 112: Negative or not required by law. Electronically signed by: Yrn Thayer M.D. 09/17/2020 4:21 PM
--- NOTE | 2020-09-17 16:32 | XRay Report ---
LUMBAR SPINE 3 VIEWS HISTORY: Low back pain, standing films COMPARISON: None. FINDINGS: There is no fracture. No subluxation. Straightening of the lumbar spine. Suboptimal evalua tion of the lower lumbar spine due to the patient's body habitus. There is moderate disc space narrow ing throughout the lumbar spine and moderate facet degenerative changes within the lower lumbar spine . The visualized sacrum is intact. Fusion of the left hip joint with a single metallic pin. IMPRESSION: 1. No fracture or subluxation within the lumbar spine. 2. Moderate degenerative changes. ACT 112: Negative or not required by law. Electronically signed by: Yrn Thayer M.D. 09/17/2020 4:31 PM
[2020-09-17] MEDS: oxyCODONE HCL IR 5 MG TAB (IMMEDIATE RELEASE) PO PRN (16:43)
[2020-09-17] MEDS: cefTRIAXone SODIUM 2,000 MG in DEXTROSE 5% 50 ML IV SCH (17:36)
[2020-09-17] MEDS: NORTRIPTYLINE HCL 10 MG CAP PO SCH (20:33)
[2020-09-17] MEDS: VENLAFAXINE HCL XR 37.5 MG CAPXR PO SCH (20:33)
[2020-09-17] MEDS: ACETAMINOPHEN 325 MG TAB PO PRN (20:39)
[2020-09-17] MEDS ORDERED: NALOXONE HCL 0.4 MG/1 ML VIAL/CARP IV STA (23:44)
[2020-09-18 00:31] LABS: Basophils # (auto) 0.02 K/uL (0-0.2); Basophils % (auto) 0.2 %; Eosinophils # (auto) 0.34 K/uL (0-0.5); Eosinophils % (auto) 3.4 %; Hematocrit (blood only) 39.6 % (42-52); Hemoglobin 12.9 g/dL (14.0-18.0); Immature Granulocytes # (auto) 0.07 K/uL (0.00-0.02); Immature Granulocytes % (auto) 0.7 %; Lymphocytes # (auto) 1.79 K/uL (1.2-3.4); Lymphocytes % (auto) 17.8 %; Mean Corpuscular Hemoglobin 30.6 pg (25-34); Mean Corpuscular Volume 94.1 fL (80-100); Monocytes # (auto) 0.76 K/uL (0.11-0.59); Monocytes % (auto) 7.5 %; Neutrophils % (auto) 70.4 %; Platelet Count 229 K/uL (130-400); RDW Coefficient of Variation 13.9 % (11.5-14.5); RDW Standard Deviation 47.7 fL (36.4-46.3); Red Blood Count 4.21 M/uL (4.7-6.1); White Blood Count 10.08 K/uL (4.8-10.8)
[2020-09-18 00:37] LABS: Base Excess ABG 2.2 mEq/L (-9-1.8); HCO3 ABG 25 mmol/L (19-24); Oxygen Saturation ABG 97.1 % (90-95); PCO2 ABG 35 mmHg (35-46); PO2 ABG 85 mmHg (80-95); pH ABG 7.48 (7.35-7.45)
[2020-09-18 00:46] LABS: Allen Test Pos (Pos)
[2020-09-18 00:47] LABS: Alanine Aminotransferase 27 U/L (12-78); Albumin Level 2.8 gm/dl (3.4-5.0); Aspartate Aminotransferase 36 U/L (15-37); BUN Creatinine Ratio 14.1 (10-20); Blood Urea Nitrogen 15 mg/dl (7-18); Calcium 8.7 mg/dl (8.5-10.1); Carbon Dioxide 26 mmol/L (21-32); Chloride 99 mmol/L (98-107); Est GFR (African American) 90.7; Est GFR (Non-African American) 78.2; Glucose 108 mg/dl (70-99); Magnesium 2.5 mg/dl (1.8-2.4); Mean Corpuscular Hgb Conc 32.6 g/dL (32-36); Sodium 133 mmol/L (136-145)
[2020-09-18 00:52] LABS: Albumin Globulin Ratio 0.6 (0.9-2); Alkaline Phosphatase 126 U/L (45-117); Bilirubin,Total 0.6 mg/dl (0.2-1); Globulin 4.8 gm/dl (2.5-4.0); Total Protein 7.6 gm/dl (6.4-8.2); Troponin I < 0.015 ng/ml (0-0.045)
[2020-09-18] MEDS: ACETAMINOPHEN 325 MG TAB PO PRN (03:52)
[2020-09-18] MEDS: METHADONE HCL 5 MG TAB PO SCH ×3 (05:17→21:56)
[2020-09-18] MEDS: BACLOFEN 10 MG TAB PO SCH (06:24)
[2020-09-18] MEDS: INSULIN ASPART 100 UNITS/ML 3 ML PEN SC SCH ×4 (09:08→21:55)
[2020-09-18] MEDS: LIDOCAINE 5% 1 PATCH TD SCH (09:09)
[2020-09-18] MEDS: ATENOLOL 50 MG TABLET PO SCH (09:09)
[2020-09-18] MEDS: GABAPENTIN 800 MG TAB PO SCH ×3 (09:09→21:55)
[2020-09-18] MEDS: ENOXAPARIN INJ 40 MG/0.4 ML SYR SQ SCH ×2 (09:09→21:54)
[2020-09-18] MEDS: lisinopril 10 MG TAB PO SCH (09:10)
[2020-09-18] MEDS: MELOXICAM 7.5 MG TAB PO SCH (09:10)
[2020-09-18] MEDS: POLYETHYLENE (MIRALAX) 17 GM PACK PO PRN (11:58)
[2020-09-18] MEDS ORDERED: BACLOFEN 10 MG TAB PO PRN (12:05)
--- NOTE | 2020-09-18 12:35 | Orthopedic Consultation ---
Date of Consultation September 18, 2020 Assessment & Plan (1) Acute exacerbation of chronic low back pain: I did have the opportunity review his CAT scan and x-rays. He demonstrates significant multilevel spondylosis with arthritis involving the facet joints. I did not recommend any surgical intervention. He is option is rehabilitation and continued pain management. Present on Admission?: Yes History of Present Illness Reason for Consultation: Chronic back pain Attending Physician: Marsha Padilla MD History of Present Illness This is a very pleasant 60-year-old male that has a history of chronic persistent back pain. He is managed with the pain management team at [facility]. Is a history of undergoing a left hip fusion at the age of 14. Is progressed with chronic pain since. They now presents with osteoarthritis of the right hip and bilateral knees. He denies any pain rating into the buttock or lower extremities. Allergies Allergy/AdvReac Type Severity Reaction Status Date / Time adhesive AdvReac Intermediate IRRITATION Unverified 05/02/15 13:05 IN CERTAIN AREA Home Medications Medication Instructions Recorded Confirmed Type Saccharomyces boulardii [Florastor] 250 mg PO BID #20 cap 09/14/20 Rx atenolol 50 mg PO DAILY 09/14/20 09/14/20 History baclofen 10 mg PO TID PRN 09/14/20 09/14/20 History cefdinir 300 mg PO BID 10 Days #20 cap 09/14/20 Rx gabapentin 800 mg PO TID 09/14/20 09/14/20 History lisinopril 10 mg PO DAILY 09/14/20 09/14/20 History meloxicam 15 mg PO DAILY 09/14/20 09/14/20 History methadone 10 mg PO Q8H 09/14/20 09/14/20 History nortriptyline 20 mg PO HS 09/14/20 09/14/20 History oxycodone 20 mg PO DAILY PRN 09/14/20 09/14/20 History prochlorperazine maleate 10 mg PO QID PRN #14 tab 09/14/20 Rx sod phos di, mono-K phos mono 1 tab PO BID #6 tab 09/14/20 Rx [Phospha] venlafaxine 37.5 mg PO PM 09/14/20 09/14/20 History Patient History Medical History (Updated 09/16/20 @ 09:56 by Rolando Michaels MD) Anxiety Arthritis Chronic pain Hypertension Social History Smoking Status: Former smoker Second Hand Exposure: No; Do You Dip or Chew Tobacco: No; Hx Alcohol Use: No Hx Substance Use: No Preferred Language: Serbian Communication Ability: Effective Minister Helper Required: No Beliefs That Will Affect Care: None marital status: Current Living Situation: Spouse Other Information That Helps Us Care for You: No Feels Safe at Home: Yes Safety Concerns: Feels Safe At This Time Assistive Devices: None Physical Exam Physical Exam: Patient is in bed. He is alert and oriented. He has reasonable strength testing lower extremities. Results & Data ([facility]) Vital Signs (Past 12 Hours) Vital Signs Temp Pulse Pulse Resp BP Pulse Ox 09/18/20 07:50 37.1 C 74 16 107/57 L 93 09/18/20 03:56 36.9 C 80 21 117/72 92
--- NOTE | 2020-09-18 16:50 | Electrocardiogram Report ---
Test Reason : Blood Pressure : / mmHG Vent. Rate : 069 BPM Atrial Rate : 069 BPM P-R Int : 170 ms QRS Dur : 082 ms QT Int : 428 ms P-R-T Axes : 090 -31 040 degrees QTc Int : 458 ms Sinus rhythm with Premature atrial complexes in a pattern of bigeminy Left axis deviation Low voltage QRS Abnormal ECG When compared with ECG of 02-MAY-2015 13:19, Premature atrial complexes are now Present Confirmed by Pedrito Jimenez ([id number]) on 09/18/2020 4:49:40 PM Referred By: REFERRED SELF Confirmed By:Deshawn Jimenez
--- NOTE | 2020-09-18 17:18 | Hospitalist Progress Note ---
Date of Service September 18, 2020 Assessment & Plan (1) Acute exacerbation of chronic low back pain: (2) Lumbar paraspinal muscle spasm: Has chronic back pain on narcotics as an outpatient Present on admission with back pain associated with ambulatory dysfunction CT lumbar spine showed no fracture or subluxation within the lumbar spine. Moderate to severe degenerative changes as described above. Continue pain control and muscle relaxant Orthopedic on board No surgical intervention as per ortho PT recommended rehab and the patient is awaiting insurance approval to go to [facility] [employer] or [employer] Fall precaution (3) Urinary tract infection: Urine cx showed alpha strep not enterococcus Continue IV rocephin Stable (4) Hypertension: BP is controlled (5) Morbid obesity: BMI 46.3 Counseling on weight loss (6) Depression: No acute delirium Continue current meds DVT prophylaxis Subcu Lovenox Disposition Waiting for placement to rehab Admission and Anticipated Discharge Date Admission Date: September 16, 2020 Subjective Pt was seen and examined for follow up of back pain Lying in bed with no distress Pt said that he continues to have back pain He said that his pain is comes and goes denies any chest pain, palpitation, dizziness and SOB Review of Systems Review of Systems: All systems reviewed & are unremarkable except as noted in Subjective Physical Exam Physical Exam: General- No acute distress Head- atraumatic Eyes- PERRL, EOMI, ENT- oropharynx clear Neck- supple, no JVD Lungs- clear to auscultation Heart- regular rhythm; no murmur Abdomen- normal bowel sounds, soft, nontender Extremities- no calf tenderness Neuro- alert, oriented x 3; PERRL, EOMI; no facial palsy; no dysarthria Skin- warm & dry Results & Data Results & Data ([facility]) Vital Signs (Past 12 Hours) Vital Signs Temp Pulse Resp BP BP Pulse Ox 09/18/20 16:30 37.3 C 63 18 119/70 94 09/18/20 07:50 37.1 C 74 16 107/57 L 93 (1) Urinary tract infection Hematuria presence: with hematuria Urinary tract infection type: acute cystitis Qualified Code(s): N30.01 - Acute cystitis with hematuria
[2020-09-18] MEDS: cefTRIAXone SODIUM 2,000 MG in DEXTROSE 5% 50 ML IV SCH (17:36)
[2020-09-18] MEDS: VENLAFAXINE HCL XR 37.5 MG CAPXR PO SCH (21:53)
[2020-09-18] MEDS: NORTRIPTYLINE HCL 10 MG CAP PO SCH (21:55)
[2020-09-18] MEDS: oxyCODONE HCL IR 5 MG TAB (IMMEDIATE RELEASE) PO PRN (22:00)
[2020-09-19] MEDS: METHADONE HCL 5 MG TAB PO SCH ×2 (05:36→14:26)
[2020-09-19] MEDS: LIDOCAINE 5% 1 PATCH TD SCH (08:40)
[2020-09-19] MEDS: GABAPENTIN 800 MG TAB PO SCH ×2 (08:42→13:44)
[2020-09-19] MEDS: MELOXICAM 7.5 MG TAB PO SCH (08:42)
[2020-09-19] MEDS: ATENOLOL 50 MG TABLET PO SCH (08:44)
[2020-09-19] MEDS: lisinopril 10 MG TAB PO SCH (08:44)
[2020-09-19] MEDS: ENOXAPARIN INJ 40 MG/0.4 ML SYR SQ SCH (08:45)
[2020-09-19] MEDS: INSULIN ASPART 100 UNITS/ML 3 ML PEN SC SCH ×2 (09:23→13:05)
[2020-09-19] MEDS ORDERED: bisacodyL 10 MG SUPP PR STA (09:54)
--- NOTE | 2020-09-19 14:47 | Hospitalist Progress Note ---
Date of Service September 19, 2020 Assessment & Plan (1) Acute exacerbation of chronic low back pain: (2) Lumbar paraspinal muscle spasm: Has chronic back pain on narcotics as an outpatient Present on admission with back pain associated with ambulatory dysfunction CT lumbar spine showed no fracture or subluxation within the lumbar spine. Moderate to severe degenerative changes as described above. Continue pain control and muscle relaxant Orthopedic on board No surgical intervention as per ortho PT recommended rehab and the patient is awaiting insurance approval to go to or [facility] Fall precaution Plan to go to rehab today (3) Urinary tract infection: Urine cx showed alpha strep not enterococcus On IV Rocephin day 5, will transition to Cefdinir to complete 2 more days Stable (4) Diabetes: Newly dx Diabetes type 2 Hba1c 7.5 on 09/15/20 Has been on novolog sliding scale Result discussed with patient and he said that he was not aware of that he is diabetes Pt was advised to follow a low card diet and limited concentrated sugar Will start on Metformin 500mg daily for now, and can titrate to BID outpatient if tolerate it Continue monitor BS (5) Hypertension: BP is controlled (6) Morbid obesity: BMI 46.3 Counseling on weight loss (7) Depression: No acute delirium Continue current meds DVT prophylaxis Subcu Lovenox Disposition Will discharge to rehab today Admission and Anticipated Discharge Date Admission Date: September 16, 2020 Subjective Pt was seen and examined for follow up of back pain Lying in bed with no distress Pt said that he continues to have back pain, but slightly improves called on the phone and provided with updates after obtaining permission from pt denies any chest pain, palpitation, dizziness and SOB Review of Systems Review of Systems: All systems reviewed & are unremarkable except as noted in Subjective Physical Exam Physical Exam: General- No acute distress Head- atraumatic Eyes- PERRL, EOMI, ENT- oropharynx clear Neck- supple, no JVD Lungs- clear to auscultation Heart- regular rhythm; no murmur Abdomen- normal bowel sounds, soft, nontender Extremities- no calf tenderness Neuro- alert, oriented x 3; PERRL, EOMI; no facial palsy; no dysarthria Skin- warm & dry Results & Data Results & Data ([facility]) Vital Signs (Past 12 Hours) Vital Signs Temp Pulse Resp BP Pulse Ox 09/19/20 08:43 76 108/78 09/19/20 07:11 36.7 C 71 16 119/79 91 (1) Urinary tract infection Hematuria presence: with hematuria Urinary tract infection type: acute cystitis Qualified Code(s): N30.01 - Acute cystitis with hematuria
[2020-09-19] MEDS ORDERED: CEFDINIR 300 MG CAP PO SCH (15:00)
--- NOTE | 2020-09-19 15:24 | Discharge Summary ---
Date of Service September 19, 2020 Admission HPI Per Admitting Provider CHIEF COMPLAINT: Back pain, ambulatory dysfunction. HISTORY OF PRESENT ILLNESS: A 60-year-old male with past medical history significant for hypertension, morbid obesity, generalized osteoarthrosis, chronic pain syndrome, who presents with back pain and ambulatory dysfunction. The patient states since last 3 days he is having severe back pain and spasms. He usually walks with two canes, but he is using 's walker, which prompted him to come to the ER. He also had some burning micturition and some abdominal discomfort. In the ER, he had a mild temperature spike and mild leukocytosis and UA was positive. Initially ER tried to discharge him, but he was having poor ambulatory dysfunction and so we are called for observation in the hospital and PT and OT. Currently complains of back pain. He had headache about a week ago, but that got resolved. He has chronic erythema on his face. No blurred visions, no earache, no runny nose, no sore throat, no loss of sense of smell or taste. No cough, no difficulty swallowing. Appetite is not that great since last few days. No chest pain, no shortness of breath. Has nausea. Has some abdominal discomfort. He is constipated. Denies any blood in the stool or black stools. Denies any hematuria. No rash anywhere else. Admission Exam Per Admitting Provider GENERAL: The patient is morbidly obese, not in acute distress. VITAL SIGNS: Temperature 37.6, pulse 86, respiratory rate 14, blood pressure 114/66, oxygen 98% on room air. HEENT: Pupils equal, round, and reactive. Erythema on the face on both the cheeks and forehead. Oral mucosa moist. NECK: No neck masses seen. CARDIOVASCULAR: S1, S2 heard. Regular rate and rhythm, no murmur, no gallop. RESPIRATORY SYSTEM: Normal AP diameter. No accessory muscle use. No wheezing, no crackles. ABDOMEN: Soft, bowel sounds present, nontender. No distention. CENTRAL NERVOUS SYSTEM: Alert and oriented. Speech is clear. No facial droop. Obeys simple commands. Moves extremities. EXTREMITIES: No edema, no erythema. MUSCULOSKELETAL: Right straight leg test positive. Principal Diagnosis Acute exacerbation of chronic low back pain: Lumbar paraspinal muscle spasm: Urinary tract infection: Hypertension: Morbid obesity: Constipation: Depression: Diabetes type 2 Discharge Exam General- No acute distress Head- atraumatic Eyes- PERRL, EOMI, ENT- oropharynx clear Neck- supple, no JVD Lungs- clear to auscultation Heart- regular rhythm; no murmur Abdomen- normal bowel sounds, soft, nontender Extremities- no calf tenderness Neuro- alert, oriented x 3; PERRL, EOMI; no facial palsy; no dysarthria Skin- warm & dry Discharge Data Allergies Allergy/AdvReac Type Severity Reaction Status Date / Time adhesive AdvReac Intermediate IRRITATION Unverified 05/02/15 13:05 IN CERTAIN AREA Consultations 09/14/20 19:53 ED Decision to Admit Stat 09/14/20 22:10 Consult Case Management - Discharge Planning Routine 09/17/20 13:34 Consult Orthopedic Surgery Routine Ordered Studies 09/14/20 14:12 CT abd pelvis IV con only Stat 09/17/20 15:30 CT lumbar spine wo con Routine LUMBAR SPINE 3 VIEWS HISTORY: Low back pain, standing films COMPARISON: None. FINDINGS: There is no fracture. No subluxation. Straightening of the lumbar spine. Suboptimal evaluation of the lower lumbar spine due to the patient's body habitus. There is moderate disc space narrowing throughout the lumbar spine and moderate facet degenerative changes within the lower lumbar spine. The visualized sacrum is intact. Fusion of the left hip joint with a single metallic pin. IMPRESSION: 1. No fracture or subluxation within the lumbar spine. 2. Moderate degenerative changes. ACT 112: Negative or not required by law. Electronically signed by: Yrn Thayer M.D. 09/17/2020 4:31 PM Dictated: 09/17/201628Transcribed: 09/17/[address] DOSE: 1213.69 mGy.cm HISTORY: Low back pain TECHNIQUE: Multiaxial CT images of the lumbar spine were performed and reformatted in the sagittal and coronal plane without the use of contrast. A dose lowering technique was utilized adhering to the principles of ALARA. COMPARISON: Abdomen and pelvis CT 09/14/2020. FINDINGS: No fracture or subluxation. Moderate to severe disc space narrowing throughout the lumbar spine. The most mass at the L3-L4 and L5-S1 levels. There are large anterior osteophytes seen throughout the lumbar spine. Moderate facet degenerative changes within the lower lumbar spine. The sacrum is intact. Questionable irregularity within the right iliac bone appears to be secondary to motion artifact. Mild dextroscoliosis which may be positional. Paravertebral soft tissues are within normal limits. Moderate central canal narrowing at L2- L3, L3-L4, L4-L5 due to the broad-based posterior disc bulges and ligamentum flavum/facet hypertrophy. There is also moderate bilateral neural foraminal narrowing throughout the majority of the lumbar spine. IMPRESSION: 1. No fracture or subluxation within the lumbar spine. 2. Moderate to severe degenerative changes as described above. ACT 112: Negative or not required by law. Electronically signed by: Yrn Thayer M.D. 09/17/2020 4:21 PM Dictated: 09/17/201611Transcribed: 09/17/[address] WITH IV CONTRAST CT DOSE: 2076.87 mGy.cm HISTORY: Acute left-sided flank pain left flank pain TECHNIQUE: Multiaxial CT images of the abdomen and pelvis were performed following the IV administration of 118 cc of Optiray 320, A dose lowering technique was utilized adhering to the principles of ALARA. COMPARISON STUDY: Pelvis radiograph 10/04/2007 FINDINGS: Limited exam secondary to patient body habitus with portions of the anatomy outside the [id number] resulting in beam hardening artifact. Mild cardiomegaly. Coronary artery calcifications. Trace right pleural effusion with mild bibasilar opacities suggestive of atelectasis. No pneumatosis or pneumoperitoneum. Hepatosplenomegaly with hepatic steatosis. The spleen measures up to 20 cm in length. Mildly distended gallbladder with layering sludge versus cholelithiasis. No CT evidence of acute cholecystitis. There is no biliary ductal dilation. Mild to moderate pancreatic atrophy. Adrenal glands are within normal limits. Probable cyst of the inferior pole right kidney, 6.6 x 5.7 cm. No urolith or obstructive uropathy. Calcifications of the central prostate. Mild bladder wall thickening with perivesicular stranding. Small diverticulum of the urinary bladder dome, 2.9 cm. Atherosclerosis of the aorta without aneurysm. No adenopathy. No bowel obstruction or bowel wall thickening. Trace presacral free fluid. Trace free fluid of the inferior left pericolic gutter. Noninflamed appendix. Small fat filled periumbilical hernia, diastases 2.2 cm. There is severe osteoarth ritis with prominent subcortical cystic changes of the right femoral acetabular joints. Near-complete bony fusion of the left femoral acetabular joints with cannulated screw. Asymmetric atrophy of the left hip and thigh. IMPRESSION: 1. No renal or ureteral calculi or obstructive uropathy. 2. Urinary bladder wall thickening with perivesicular stranding. Correlate with urinalysis to exclude cystitis. 3. Hepatosplenomegaly with hepatic steatosis. 4. No bowel obstruction or bowel wall thickening. Normal appendix. 5. Trace right pleural effusion with mild consolidation suggestive of atelectas is. 6. Additional findings as above. ACT 112: Negative or not required by law. The above report was generated using voice recognition software. It may contain grammatical, syntax or spelling errors. Electronically signed by: Prosper Denis M.D. 09/14/2020 5:58 PM Dictated: 09/14/201750Transcribed: 09/14/201750 Diabetes Follow up Diabetes Follow-up Needed for Newly Diagnosed Diabetes Hospital Course (1) Acute exacerbation of chronic low back pain: (2) Lumbar paraspinal muscle spasm: Has chronic back pain on narcotics as an outpatient Present on admission with back pain associated with ambulatory dysfunction CT lumbar spine showed no fracture or subluxation within the lumbar spine. Moderate to severe degenerative changes as described above. Continue pain control and muscle relaxant Orthopedic on board No surgical intervention as per ortho PT recommended rehab and the patient is awaiting insurance approval to go to [facility] [employer] or [facility] Fall precaution Plan to go to rehab today (3) Urinary tract infection: Urine cx showed alpha strep not enterococcus On IV Rocephin day 5, will transition to Cefdinir to complete 2 more days Stable (4) Diabetes: Newly dx Diabetes type 2 Hba1c 7.5 on 09/15/20 Has been on novolog sliding scale Result discussed with patient and he said that he was not aware of that he is diabetes Pt was advised to follow a low card diet and limited concentrated sugar Will start on Metformin 500mg daily for now, and can titrate to BID outpatient if tolerate it Continue monitor BS (5) Hypertension: BP is controlled (6) Morbid obesity: BMI 46.3 Counseling on weight loss (7) Depression: No acute delirium Continue current meds 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 and oxycodone Continue laxative and stools softener DVT prophylaxis Subcu Lovenox Disposition Will discharge to rehab today Total Time Total Time Spent Total Time Spent (In Minutes): 35 minutes Total Time Includes: Examination of the Patient, Discharge Planning, Medication Reconciliation, Communication With Other Providers and Other Discharge Plan Discharge Items Patient Disposition: Transfer Inpatient Rehab Fac Reason For Visit: BACK PAIN Discharge Diagnosis: Acute exacerbation of chronic low back pain: Lumbar paraspinal muscle spasm: Urinary tract infection: Hypertension: Morbid obesity: Constipation: Depression: Diabetes type 2 Condition on Discharge: Good Activity: Resume your previous activity Non-emergency contact: Primary Care Provider Call non-emergency contact if: you have any medication questions and your pain is not controlled Follow-up/Referrals: Elvis Villar MD [Primary Care Provider] - Diet: Heart Healthy Addtl Attending Provider Instructions: Follow up with your primary care provider once discharge from [facility] Follow up with pain management clinic Continue physical and occupational therapy Complete the course of the antibiotic (2 more days ) Fall precaution Counseling on weight loss Newly diagnosed diabetes. you need to follow a low carb diet and limited concentrated sweet intake starting on Metformin 500mg daily, your provider will titrate it to twice a day if able to tolerate it. Check Hba1c in 3-6 months Pending Studies at Discharge: No Stand-Alone Forms: My [facility] Skilled Items Patient informed of condition?: Yes DNR: No Discharge Level of Care: Acute rehab Communicable Disease: No Discharge Prognosis: Stable Lines: None Urinary Catheter: No Medications and DC Order Prescriptions: New Saccharomyces boulardii [Florastor] 250 mg capsule 250 mg PO BID Qty: 20 RF: 0 prochlorperazine maleate 10 mg tablet 10 mg PO QID PRN (Reason: nausea and vomiting) Qty: 14 RF: 0 Phospha 250 Neutral 250 mg tablet 1 tab PO BID Qty: 6 RF: 0 cefdinir 300 mg Capsule 300 mg PO BID 2 Days Qty: 4 RF: 0 metformin 500 mg tablet extended release 24 hr 500 mg PO DAILY Qty: 30 RF: 0 docusate sodium [Dulcolax Stool Softener (dss)] 100 mg capsule 100 mg PO DAILY PRN (Reason: constipation) Qty: 30 RF: 0 Continued venlafaxine 37.5 mg Capsule,Extended Release 24hr 37.5 mg PO PM RF: 0 meloxicam 15 mg Tablet 15 mg PO DAILY RF: 0 gabapentin 800 mg Tablet 800 mg PO TID RF: 0 baclofen 10 mg Tablet 10 mg PO TID PRN (Reason: Spasms) RF: 0 nortriptyline 10 mg Capsule 20 mg PO HS RF: 0 lisinopril 10 mg Tablet 10 mg PO DAILY RF: 0 atenolol 50 mg Tablet 50 mg PO DAILY RF: 0 methadone 10 mg tablet 10 mg PO Q8H Qty: 10 RF: 0 oxycodone 20 mg tablet 20 mg PO DAILY PRN (Reason: Pain) Qty: 5 RF: 0 Discharge Orders: Discharge Order (Routine); Ordered 09/19/20 Ordered By: Marsha Whelan/Other Patient Handouts: Managing Type 2 Diabetes, How to Check Your Blood Sugar, Diabetes: Keeping Feet Healthy, Diabetes: Meal Planning Admission Data Admit Date/Time: 09/16/20 16:14 Attending Provider: Marsha Padilla Admit Provider: Noah Mullen Primary Care Provider: Elvis Villar Other Providers: Noah Mullen ; [facility] ; [facility] ; Moris Valdovinos Manabendra Other Interventions: Discharge Summary Assessment (RN) Last Done: 09/19/20 14:37
--- NOTE | 2020-09-24 09:13 | Coding Query ---
CODING QUERY To promote full compliance with coding requirements relating to patient care, provider participation is requested in all cases of tobacco packing machine operator uncertainty. Please assist us with the question(s) below: Coding Question(s): Acute exacerbation of chronic low back pain is documented and there is documentation of a history of Chronic Pain Syndrome and documentation of CT lumber spine with moderate to severe degenerative changes and the Orthopedic Consultation documents acute exacerbation of chronic low back pain and documents the CAT scan and x-ray findings demonstrating significant multilevel spondylosis with arthritis involving the facet joints. Please specify below, in your clinical opinion regarding the pain being treated acutely. ( ) Acute Exacerbation of Chronic Pain Syndrome is being treated ( x ) Acute Exacerbation of Chronic Low Back Pain is due to Spondylosis/degenerative changes of the lumbar spine ( ) Acute Exacerbation of Chronic Low Back Pain due to Other: Please Specify ( ) Other: Please Specify Physician's Response(s): Thank you Sara Gee Principal Diagnosis: "that condition established after study, to be chiefly responsible for occasioning the admission of the patient to the hospital for care." Co-Existing Principal Diagnosis: "when two or more diagnoses equally meet the criteria for principal diagnosis as determined by the circumstances of admission, diagnostic work up, and/or therapy provided, and the Alphabetic Index, Tabular List, or another coding guideline does not provide sequencing direction, any one of the diagnoses may be sequenced first." "When the physician has documented what appears to be a current diagnosis in the body of the record, but has not included the diagnosis in the final diagnostic statement, the physician should be asked whether the diagnosis should be added." (Source [facility]oding [facility] 2 QTR90. p3-4) [facility]
== END 2020-09-19 15:56 ==
LOC: 3W 13:46 → ED 13:46 → 3W 21:44 → SUATTDRO 09-16 16:14